=== PATIENT | female | born 1990 | race African-American/Black ===

== ENCOUNTER 2017-09-12 22:56 | Emergency (ER) | payer SELFPAY ==
[~2017-09-12] VITALS: Ht 165.1 cm; Wt 58.1 kg
[2017-09-12 23:09] VITALS: BP 137/77
--- NOTE | 2017-09-13 00:30 | ED GI/GU/ABDOMINAL COMPLAINT ---
History of Present Illness General Chief Complaint: Female Urogenital Problems Stated Complaint: CRAMPS, VAGINAL DISCHARGE, UNKNOWN IF PREG Vital Signs & Intake/Output Vital Signs & Intake/Output Vital Signs Date Time Temp Pulse Resp B/P B/P Pulse O2 O2 Flow FiO2 Mean Ox Delivery Rate 09/12 2309 97.0 91 18 137/77 96 Room Air ED Intake and Output 09/13 0000 09/12 1200 Intake Total Output Total Balance Patient 128 lb Weight Weight Reported by Patient Measurement Method Allergies Coded Allergies: No Known Allergies (09/12/17) Triage Note: PT FROM HOME C/O LOWER ABD/PELVIC PAIN BEGAN 1 HR PRIOR TO ARRIVAL. PT STATES PIN[place] FOR THE PAST FEW DAYS. VSS. PT STATES THAT 1 HR AGO SHE WAS CARRYING BAGS AND HOLDING HER DAUGHTER AND FELT SHARP STABBING LOWER ABD/PELVIC PAIN THAT IS INTERMITTENT. PT DENIES N/V/D, DENIES BLEEDING. PT STATES +DISCHARGE (COLOR: WHITE). PT IN NO DISTRESS IN TRIAGE. PT PROVIDED WITH A URINE CUP FOR SPECIMEN. Past History Travel History Traveled to [facility] past 21 day No Medical History Psychiatric: depression Psychosocial History What is your primary language Mongolian Tobacco Use: Current Daily Use Daily Tobacco Use Amount/Type: => 5 Cigarettes daily ETOH Use: occasional use Illicit Drug Use: denies illicit drug use Progress Plan of Care: Orders Procedure Date/time Status URINALYSIS 09/12 2316 Complete URINE 09/12 2312 Complete Laboratory Tests 09/12/172319: Urine Test NEGATIVE 09/12/17 2320: Urinalysis LIGHT H, Urine Color YEL, Urine Clarity CLDY H, Urine pH 6.0, Ur Specific [place] >= 1.030, Urine Protein NEG, Urine Ketones NEG, Urine Nitrite NEG, Urine Bilirubin NEG, Urine Urobilinogen 0.2, Ur Leukocyte Esterase TRACE H , Ur Microscopic SEDIMENT EXAMINED, Urine RBC RARE, Urine WBC 3-5 H, Ur Epithelial Cells MANY H, Urine Bacteria MANY H, Urine Mucus MOD H, Urine Hemoglobin NEG, Urine Glucose NEG Departure Departure Condition: Stable Referrals: Patient Has No Primary Care Dr (PCP/Family) Departure Forms: Customer Survey General Discharge Information
== END 2017-09-13 00:45 | disposition admitted as inpatient to this hospital (09) ==
LOC: ERH 22:56
DX: R10.2 Pelvic and perineal pain (principal); N89.8 Other specified noninflammatory disorders of vagina
CPT/HCPCS: 81001; 81025; 99281

== ENCOUNTER 2017-10-28 21:18 | Observation (INO) | payer OTHER ==
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
[2017-10-28 21:59] LABS: ABSOLUTE BASOPHIL COUNT 0.1 /CUMM (0.0-0.2); ABSOLUTE EOSINOPHIL COUNT 0.2 /CUMM (0.0-0.7); ABSOLUTE GRANULOCYTE CT 4.7 /CUMM (1.4-6.5); ABSOLUTE LYMPH COUNT 3.6 /CUMM (1.2-3.4); ABSOLUTE MONOCYTE COUNT 0.5 /CUMM (0.10-0.60); BASOPHIL % 0.9 % (0.0-2.0); EOSINOPHIL % 2.2 % (0-5); GRANULOCYTE % 52.4 % (42.2-75.2); HEMATOCRIT 40.2 % (37-47); MEAN CORPUSCULAR HGB 27.9 PG (27.0-31.0); MEAN CORPUSCULAR HGB CONC 32.7 G/DL (33.0-37.0); MEAN CORPUSCULAR VOLUME 85.1 FL (81.0-99.0); MEAN PLATELET VOLUME 8.4 FL (7.4-10.4); PLATELET COUNT 227 /CUMM (130-400); RBC DISTRIBUTION WIDTH 13.3 % (11.5-14.5); RED BLOOD CELL CT 4.72 /CUMM (4.20-5.40); WHITE BLOOD CELL COUNT 9.1 /CUMM (4.8-10.8)
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
--- NOTE | 2017-10-31 13:22 | ED PSYCHIATRIST/APRN CONSULT ---
Psychiatrist/[employer]ER ED Consult Assessment and Plan: This is a follow-up psychiatric consultation. Please see the initial psychiatric consultation done by Compa Domínguez MD yesterday 10/30/2017 Reason for consultation: Daily evaluation since the patient has been in the tone in the emergency department for more than 24 hours Background: Jamal is a 27-year-old black female who has been in the emergency room since October 28, 2017 after she presented initially requesting medication because she ran out. But there were also other issues including homelessness and ongoing substance use including opiates cocaine and alcohol. Vitals Blood Pressure 92/48 10/31/17 1143 Pulse Rate 95 10/31/17 1143 Mental status examination on October 31, 2017: The patient was interviewed in her room (#14) in the emergency department. The patient was wide awake. She was pleasant to talk to and friendly. She was calm. She reported that she has been feeling jittery. She did report that she was drinking daily prior to coming to the emergency department. There might be some mild residual withdrawals. He had a speech was normal, not pressured, not slurred. The patient did not seem to be depressed and she was animated and showed full range of affect. She does report some sense of helplessness since she knows that "I cannot go anywhere" she denied thinking of suicide today and denied having any violent thoughts or thoughts of homicide. She denied hallucinations, she did not seem to be responding to internal stimuli. She denied feeling paranoid, there were no delusions during the interview she seems to have partial insight. She showed good attention and concentration. There was no evidence of impairment in his short-term memory or her ability to process information. She did report feeling jittery and was aware that her blood pressure was low earlier probably secondary to some clonidine. Assessment: By history only and unspecified bipolar disorder Stimulant use disorder (cocaine) Opioid use disorder Alcohol use disorder Recommendations: I discussed with the patient her pharmacological and nonpharmacological options She is in agreement with going to a residential rehab program. She reported that she has been on higher doses of Seroquel in the past, at one point up to a total of 500 mg daily. She did report that she slept "okay" last night both was open to dose adjustment up to 150 mg tonight. Given her blood pressure and her ongoing complaints about jitteriness, suggest using Ativan instead of clonidine especially that there is not any other symptoms to suggest opiate withdrawal, she had just used it in a burger and she reported no nausea no vomiting today no loose stools no chills no aches and pains which is consistent that she may not have physiological dependence on opioids on the outside. I recommend giving 1 mg of Ativan now and using 0.5 mg as needed every 4 hours for any kind of anxiety and irritability agitation or insomnia, especially that the patient is to be in this uncomfortable environment until it is a bed opening which is not clear how long he is going to take Alternatively, if the patient finds temporary housing, I feel that she may be discharged from the emergency room to continue to call residential rehab programs daily for an opening and history of waiting in the emergency room
[2017-10-31 16:29] VITALS: BP 104/50
[2017-10-31] MEDS ORDERED: FLAGYL500 MG PO (17:23)
== END 2017-10-31 16:58 ==
LOC: ERH 21:18 → ERHI 21:31 → ENRESERV 22:59 → ERHI 10-31 16:58
PROVIDERS: Emergency Medicine
DX: R45.851 Suicidal ideations (principal); F31.9 Bipolar disorder, unspecified; F32.9 Major depressive disorder, single episode, unspecified; F17.200 Nicotine dependence, unspecified, uncomplicated; F14.90 Cocaine use, unspecified, uncomplicated; F11.90 Opioid use, unspecified, uncomplicated; Z72.89 Other problems related to lifestyle; N89.8 Other specified noninflammatory disorders of vagina; N39.0 Urinary tract infection, site not specified; Z79.899 Other long term (current) drug therapy
CPT/HCPCS: 80307; 81001; 87491; 87591; 93005; 93010; G0378; G0463; G0480